=== PATIENT | male | born 1960 | race Caucasian/White ===

== ENCOUNTER → 2019-01-15 | Outpatient (CLI) | payer OTHER | END | disposition home or self-care (01) | LOC: XY 08:14 | PROVIDERS: ATTEND Internal Medicine | DX: I65.23 Occlusion and stenosis of bilateral carotid arteries (principal); I10 Essential (primary) hypertension; I77.89 Other specified disorders of arteries and arterioles | CPT/HCPCS: 93886 ==

== ENCOUNTER → 2019-01-22 | Outpatient (CLI) | payer OTHER ==
[2019-01-22 11:04] LABS: Basophils # (auto) 0 uL; Basophils % (auto) 0.3 % (0.0-2.0); Eosinophils # (auto) 0.2 uL; Eosinophils % (auto) 1.8 % (0.0-7.0); Hematocrit 45.7 % (41.0-53.0); Hemoglobin 15.5 g/dL (13.5-17.5); Lymphocytes # (auto) 1.7 uL; Lymphocytes % (auto) 17.5 % (10.0-50.0); Mean Corpuscular Hemoglobin 31.6 pg (28.0-32.0); Monocytes # (auto) 0.6 uL; Monocytes % (auto) 6.4 % (0.0-12.0); Neutrophils # (auto) 7.1 uL; Platelet Count (auto) 236 10^3/uL (140-450); Red Blood Cells 4.92 10^6/uL (4.5-5.90); Red Cell Distribution Width 13.8 % (11.8-14.3); White Blood Cell 9.6 10^3/uL (4.4-10.8)
[2019-01-22 11:25] LABS: Albumin 3.8 g/dL (3.4-5.0); Calcium 9.1 mg/dL (8.5-10.1); Potassium 4.5 mmol/L (3.5-5.1)
[2019-01-22 11:30] LABS: BUN/Creatinine Ratio 23.4; Bilirubin, Total 0.4 mg/dL (0.2-1.0); Total Protein 7.7 g/dL (6.4-8.2)
== END | disposition home or self-care (01) ==
LOC: LAB 10:35
PROVIDERS: ATTEND Internal Medicine
DX: Z12.5 Encounter for screening for malignant neoplasm of prostate (principal); Z12.11 Encounter for screening for malignant neoplasm of colon; E78.5 Hyperlipidemia, unspecified; I10 Essential (primary) hypertension; R73.09 Other abnormal glucose
CPT/HCPCS: 36415; 80053; 80061; 83036; 84153; 84154; 84443; 85025

== ENCOUNTER → 2019-01-28 | Outpatient (CLI) | payer OTHER | END | disposition home or self-care (01) | LOC: LAB 16:17 | PROVIDERS: ATTEND Internal Medicine | DX: Z12.5 Encounter for screening for malignant neoplasm of prostate (principal); Z12.11 Encounter for screening for malignant neoplasm of colon; I10 Essential (primary) hypertension; E78.5 Hyperlipidemia, unspecified | CPT/HCPCS: 82270 ==

== ENCOUNTER 2020-02-17 17:02 | Inpatient (IN) | payer OTHER ==
[~2020-02-17] VITALS: Ht 180.3 cm; Wt 94.1 kg
[2020-02-17] MEDS ORDERED: cloNIDine HCL 0.1 MG TAB PO ONE (17:45)
[2020-02-17 20:22] LABS: Basophils # (auto) 0.1 10 ^3/uL (0-0.2); Basophils % (auto) 0.9 % (0.0-2.0); Eosinophils # (auto) 0.3 10 ^3/uL (0-0.8); Hematocrit 45.2 % (41.0-53.0); Hemoglobin 15.4 g/dL (13.5-17.5); Lymphocytes # (auto) 2.6 10 ^3/uL (0.4-5.4); Lymphocytes % (auto) 19.2 % (10.0-50.0); Mean Corpuscular Hgb Conc. 34.1 g/dL (32.0-36.0); Mean Corpuscular Volume 91.1 fL (80.0-100.0); Monocytes # (auto) 0.9 10 ^3/uL (0-1.3); Monocytes % (auto) 6.5 % (0.0-12.0); Neutrophils # (auto) 9.6 10 ^3/uL (1.6-8.6); Neutrophils % (auto) 71.4 % (37.0-80.0); Nucleated Red Blood Cells % 0.4 %; Platelet Count (auto) 230 10^3/uL (140-450); Red Blood Cells 4.97 10^6/uL (4.5-5.90); White Blood Cell 13.5 10^3/uL (4.4-10.8)
[2020-02-17 20:36] LABS: INR 0.98 (0.9-1.15); Partial Thromboplastin Time 29.1 sec (23.64-32.05)
[2020-02-17 20:37] LABS: BUN/Creatinine Ratio 15.1; Calcium 8.8 mg/dL (8.5-10.1); Potassium 4.2 mmol/L (3.5-5.1)
[2020-02-17 20:40] LABS: Bilirubin, Total 0.3 mg/dL (0.2-1.0); Total Protein 8.2 g/dL (6.4-8.2)
[2020-02-17] MEDS ORDERED: NIFEdipine 10 MG CAP PO ONE (22:00)
[2020-02-17] MEDS ORDERED: DexAMETHasone INJECTION 10 MG in D5W 5% 50 ML IV ONE (22:15)
[2020-02-17] MEDS ORDERED: ALBUTEROL SULF 2.5 MG/0.5ML(0.5%) NEB SOLN NEB ONE (22:15)
[2020-02-17] MEDS ORDERED: IPRATROPIUM BROM 0.5 MG/2.5ML INH SOL NEB ONE (22:15)
[2020-02-17] MEDS ORDERED: DexAMETHasone SOD PHOS 10MG/1ML VIAL INJ ONE (23:08)
[2020-02-18] VITALS (8 sets, daily range): BP systolic 132–169; BP diastolic 77–95
[2020-02-18] MEDS ORDERED: NITROGLYCERIN 0.4 MG SL TAB SL PRN (01:00)
[2020-02-18] MEDS ORDERED: MORPHINE SULF INJ 2 MG/ML SYRINGE 1ML IV PRN (01:00)
[2020-02-18] MEDS ORDERED: ONDANSETRON HCL 4 MG/2 ML VIAL IV PRN (01:00)
[2020-02-18] MEDS ORDERED: ACETAMINOPHEN 325 MG TAB PO PRN (01:00)
[2020-02-18] MEDS ORDERED: TEMAZEPAM 15 MG CAP PO PRN (01:00)
[2020-02-18] MEDS ORDERED: ASPI-404 PO (05:31)
[2020-02-18] MEDS ORDERED: LOSA-39 PO (05:31)
[2020-02-18] MEDS: IPRATROPIUM BROM 0.5 MG/2.5ML INH SOL NEB SCH ×3 (08:28→18:54)
[2020-02-18] MEDS: ALBUTEROL SULF 2.5 MG/0.5ML(0.5%) NEB SOLN NEB SCH ×3 (08:28→18:54)
[2020-02-18] MEDS: ASPirin 81 mg TAB PO SCH (10:21)
[2020-02-18] MEDS: FAMOTIDINE 20 MG TAB PO SCH ×2 (10:22→20:56)
[2020-02-18] MEDS: LOSARTAN POTASSIUM 50 MG TAB PO SCH (10:22)
[2020-02-18] MEDS: ENOXAPARIN SOD 40 MG/0.4 ML SYRINGE SC SCH (10:22)
[2020-02-18] MEDS: DexAMETHasone INJECTION 10 MG in D5W 5% 50 ML IV SCH (12:15)
[2020-02-18] MEDS ORDERED: METOPROLOL TARTRATE 50 MG TAB PO ONE (12:15)
[2020-02-18] MEDS ORDERED: NICOTINE 21MG/24 HR TOPICAL PATCH TD ONE (13:00)
[2020-02-18 13:58] LABS: Cholesterol 164 mg/dL (< 200)
[2020-02-18 14:01] LABS: HDL Cholesterol 21 mg/dL (40-59); LDL Cholesterol 95 mg/dL (< 100); Triglycerides 375 mg/dL (< 150)
[2020-02-18] MEDS ORDERED: LORazepam 0.5 MG TAB PO ONE (16:45)
[2020-02-18] MEDS: ATORVASTATIN 20 MG TAB PO SCH (20:56)
[2020-02-18] MEDS: METOPROLOL TARTRATE 50 MG TAB PO SCH (20:56)
[2020-02-18] MEDS: DOXYCYCLINE 100 MG TAB/CAP PO SCH (20:57)
[2020-02-18] MEDS: cloNIDine HCL 0.1 MG TAB PO PRN (22:44)
[2020-02-19 05:00] VITALS: BP 131/77
[2020-02-19 06:14] LABS: Basophils # (auto) 0.1 10 ^3/uL (0-0.2); Basophils % (auto) 0.3 % (0.0-2.0); Eosinophils # (auto) 0.1 10 ^3/uL (0-0.8); Eosinophils % (auto) 0.3 % (0.0-7.0); Hematocrit 40.6 % (41.0-53.0); Hemoglobin 13.7 g/dL (13.5-17.5); Lymphocytes # (auto) 1.2 10 ^3/uL (0.4-5.4); Lymphocytes % (auto) 6.3 % (10.0-50.0); Mean Corpuscular Hemoglobin 31.5 pg (28.0-32.0); Mean Corpuscular Hgb Conc. 33.7 g/dL (32.0-36.0); Mean Corpuscular Volume 93.4 fL (80.0-100.0); Monocytes # (auto) 1.1 10 ^3/uL (0-1.3); Monocytes % (auto) 5.8 % (0.0-12.0); Neutrophils # (auto) 16.2 10 ^3/uL (1.6-8.6); Neutrophils % (auto) 87.3 % (37.0-80.0); Nucleated Red Blood Cells % 0.1 %; Platelet Count (auto) 203 10^3/uL (140-450); Red Blood Cells 4.35 10^6/uL (4.5-5.90); Red Cell Distribution Width 14.3 % (11.8-14.3); White Blood Cell 18.6 10^3/uL (4.4-10.8)
[2020-02-19] MEDS: IPRATROPIUM BROM 0.5 MG/2.5ML INH SOL NEB SCH ×5 (06:38→18:45)
[2020-02-19] MEDS: ALBUTEROL SULF 2.5 MG/0.5ML(0.5%) NEB SOLN NEB SCH ×5 (06:38→18:45)
[2020-02-19 06:41] LABS: Calcium 8.7 mg/dL (8.5-10.1); Potassium 4.3 mmol/L (3.5-5.1)
[2020-02-19 06:44] LABS: BUN/Creatinine Ratio 28.6
[2020-02-19] MEDS ORDERED: ADENOSINE 82 MG in GIVE UN-DILUTED 0 ML IV STA (08:07)
[2020-02-19 08:30] VITALS: BP 139/99
[2020-02-19] MEDS: ASPirin 81 mg TAB PO SCH (09:31)
[2020-02-19] MEDS: FAMOTIDINE 20 MG TAB PO SCH ×2 (09:32→20:30)
[2020-02-19] MEDS: DOXYCYCLINE 100 MG TAB/CAP PO SCH ×2 (09:33→20:30)
[2020-02-19] MEDS: ENOXAPARIN SOD 40 MG/0.4 ML SYRINGE SC SCH (09:36)
[2020-02-19] MEDS: LOSARTAN POTASSIUM 50 MG TAB PO SCH (09:47)
[2020-02-19] MEDS: METOPROLOL TARTRATE 50 MG TAB PO SCH ×2 (09:47→20:31)
[2020-02-19] MEDS: NICOTINE 21MG/24 HR TOPICAL PATCH TD SCH (09:48)
[2020-02-19] MEDS: DexAMETHasone INJECTION 10 MG in D5W 5% 50 ML IV SCH (10:40)
[2020-02-19 12:30] VITALS: BP 139/84
[2020-02-19] MEDS ORDERED: VERAPAMIL 2.5MG/ML INJ 2ML VIAL IV ONE (14:22)
[2020-02-19] MEDS ORDERED: ANGIOMAX 250 MG VIAL IV ONE (14:22)
[2020-02-19] MEDS ORDERED: HEPARIN SODIUM (PORCINE) 5000 UNITS/ML 1ML VIAL ONE (14:22)
[2020-02-19] MEDS ORDERED: fentaNYL CITRATE 100 MCG/2 ML VL ONE (14:23)
[2020-02-19] MEDS ORDERED: MIDAZOLAM HCL 1MG/1ML-2 ML VIAL ONE ×2 (14:23→15:15)
[2020-02-19] MEDS ORDERED: SODIUM CHL 0.9% 50 ML ONE (14:23)
[2020-02-19] MEDS ORDERED: LIDOCAINE 2%HCL (LOCAL ANESTH.) INJ 20ML MDV ONE (14:46)
[2020-02-19] MEDS ORDERED: IODIXANOL 320MG/ML 100ML BTL IV ONE (14:46)
[2020-02-19] MEDS ORDERED: IOHEXOL 350 MG/ML 100ML IJ ONE (15:29)
[2020-02-19 17:10] VITALS: BP 150/82
[2020-02-19] MEDS: LORazepam 0.5 MG TAB PO PRN (19:55)
[2020-02-19] MEDS: ATORVASTATIN 20 MG TAB PO SCH (20:30)
[2020-02-19] MEDS: METOPROLOL TARTRATE 1MG/1ML-5ML VIAL IV SCH ×3 (21:15→21:53)
[2020-02-19] MEDS: SODIUM CHLOR 0.9% PF (SALINE LOCK) 10ML VIAL/SYR IV SCH (21:21)
[2020-02-19 22:00] VITALS: BP 127/95
[2020-02-20] MEDS ORDERED: METOPROLOL TARTRATE 1MG/1ML-5ML VIAL IV PRN (02:30)
[2020-02-20 05:00] VITALS: BP 103/62
[2020-02-20] MEDS: SODIUM CHLOR 0.9% PF (SALINE LOCK) 10ML VIAL/SYR IV SCH ×3 (05:54→21:10)
[2020-02-20] MEDS: ASPirin 81 mg TAB PO SCH (07:46)
[2020-02-20] MEDS: DOXYCYCLINE 100 MG TAB/CAP PO SCH ×2 (07:46→21:16)
[2020-02-20] MEDS: LORazepam 0.5 MG TAB PO PRN ×2 (07:46→17:24)
[2020-02-20] MEDS: LOSARTAN POTASSIUM 50 MG TAB PO SCH (07:47)
[2020-02-20] MEDS: FAMOTIDINE 20 MG TAB PO SCH ×2 (07:47→21:15)
[2020-02-20] MEDS: METOPROLOL TARTRATE 50 MG TAB PO SCH ×2 (07:51→21:16)
[2020-02-20] MEDS: ENOXAPARIN SOD 40 MG/0.4 ML SYRINGE SC SCH (07:52)
[2020-02-20] MEDS: NICOTINE 21MG/24 HR TOPICAL PATCH TD SCH ×2 (07:52→10:00)
[2020-02-20 09:00] VITALS: BP 148/104
[2020-02-20] MEDS: ALBUTEROL SULF 2.5 MG/0.5ML(0.5%) NEB SOLN NEB SCH ×5 (09:11→23:59)
[2020-02-20] MEDS: IPRATROPIUM BROM 0.5 MG/2.5ML INH SOL NEB SCH ×5 (09:11→23:59)
[2020-02-20] MEDS: DexAMETHasone INJECTION 10 MG in D5W 5% 50 ML IV SCH (10:42)
[2020-02-20 13:00] VITALS: BP 104/77
[2020-02-20 17:13] VITALS: BP 146/86
[2020-02-20 17:39] VITALS: BP 146/86
[2020-02-20] MEDS: ATORVASTATIN 20 MG TAB PO SCH (21:16)
[2020-02-20 22:00] VITALS: BP 171/97
[2020-02-21] MEDS: LORazepam 0.5 MG TAB PO PRN ×3 (00:05→18:47)
[2020-02-21] MEDS: cloNIDine HCL 0.1 MG TAB PO PRN ×2 (04:50→12:12)
[2020-02-21 05:00] VITALS: BP 144/83
[2020-02-21] MEDS: SODIUM CHLOR 0.9% PF (SALINE LOCK) 10ML VIAL/SYR IV SCH ×3 (06:00→21:27)
[2020-02-21] MEDS: ALBUTEROL SULF 2.5 MG/0.5ML(0.5%) NEB SOLN NEB SCH ×3 (07:34→19:32)
[2020-02-21] MEDS: IPRATROPIUM BROM 0.5 MG/2.5ML INH SOL NEB SCH ×3 (07:34→19:32)
[2020-02-21 09:00] VITALS: BP_SYST 125; BP_SYST 141; BP_DIAS 84; BP_DIAS 91
[2020-02-21] MEDS: NICOTINE 21MG/24 HR TOPICAL PATCH TD SCH (09:39)
[2020-02-21] MEDS: ASPirin 81 mg TAB PO SCH (09:50)
[2020-02-21] MEDS: FAMOTIDINE 20 MG TAB PO SCH ×2 (09:51→22:03)
[2020-02-21] MEDS: ENOXAPARIN SOD 40 MG/0.4 ML SYRINGE SC SCH (09:51)
[2020-02-21] MEDS: DOXYCYCLINE 100 MG TAB/CAP PO SCH ×2 (09:51→22:04)
[2020-02-21] MEDS: LOSARTAN POTASSIUM 50 MG TAB PO SCH (09:51)
[2020-02-21] MEDS: METOPROLOL TARTRATE 50 MG TAB PO SCH ×2 (09:51→22:03)
[2020-02-21] MEDS: DexAMETHasone INJECTION 10 MG in D5W 5% 50 ML IV SCH (10:27)
[2020-02-21 13:00] VITALS: BP 170/106
[2020-02-21 17:00] VITALS: BP 145/89
[2020-02-21 22:00] VITALS: BP 156/91
[2020-02-21] MEDS: ATORVASTATIN 20 MG TAB PO SCH (22:03)
[2020-02-22] MEDS: IPRATROPIUM BROM 0.5 MG/2.5ML INH SOL NEB SCH ×4 (00:45→18:00)
[2020-02-22] MEDS: ALBUTEROL SULF 2.5 MG/0.5ML(0.5%) NEB SOLN NEB SCH ×4 (00:45→18:00)
[2020-02-22] MEDS: LORazepam 0.5 MG TAB PO PRN ×4 (00:48→23:00)
[2020-02-22] MEDS: traMADol HCL 50 MG TAB PO PRN ×2 (02:54→16:03)
[2020-02-22 05:12] VITALS: BP 138/87
[2020-02-22] MEDS: SODIUM CHLOR 0.9% PF (SALINE LOCK) 10ML VIAL/SYR IV SCH ×3 (06:33→22:18)
[2020-02-22 09:00] VITALS: BP 142/87
[2020-02-22] MEDS: ENOXAPARIN SOD 40 MG/0.4 ML SYRINGE SC SCH (09:36)
[2020-02-22] MEDS: DOXYCYCLINE 100 MG TAB/CAP PO SCH ×2 (09:36→22:19)
[2020-02-22] MEDS: FAMOTIDINE 20 MG TAB PO SCH ×2 (09:36→22:19)
[2020-02-22] MEDS: METOPROLOL TARTRATE 50 MG TAB PO SCH ×2 (09:37→22:19)
[2020-02-22] MEDS: ASPirin 81 mg TAB PO SCH (09:39)
[2020-02-22] MEDS: LOSARTAN POTASSIUM 50 MG TAB PO SCH (09:39)
[2020-02-22] MEDS: NICOTINE 21MG/24 HR TOPICAL PATCH TD SCH (09:40)
[2020-02-22] MEDS: DexAMETHasone INJECTION 10 MG in D5W 5% 50 ML IV SCH (09:56)
[2020-02-22 13:00] VITALS: BP 142/86
[2020-02-22 17:00] VITALS: BP 143/82
[2020-02-22] MEDS: ATORVASTATIN 20 MG TAB PO SCH (22:18)
[2020-02-23 00:09] VITALS: BP 149/90
[2020-02-23] MEDS: IPRATROPIUM BROM 0.5 MG/2.5ML INH SOL NEB SCH ×4 (01:26→18:44)
[2020-02-23] MEDS: ALBUTEROL SULF 2.5 MG/0.5ML(0.5%) NEB SOLN NEB SCH ×4 (01:26→18:44)
[2020-02-23 05:42] VITALS: BP 132/96
[2020-02-23] MEDS: SODIUM CHLOR 0.9% PF (SALINE LOCK) 10ML VIAL/SYR IV SCH ×3 (06:00→22:00)
[2020-02-23 06:31] LABS: Basophils # (auto) 0 10 ^3/uL (0-0.2); Basophils % (auto) 0.2 % (0.0-2.0); Eosinophils # (auto) 0.1 10 ^3/uL (0-0.8); Eosinophils % (auto) 0.3 % (0.0-7.0); Hematocrit 42.8 % (41.0-53.0); Hemoglobin 14.4 g/dL (13.5-17.5); Lymphocytes # (auto) 2.7 10 ^3/uL (0.4-5.4); Lymphocytes % (auto) 17.3 % (10.0-50.0); Mean Corpuscular Hemoglobin 30.8 pg (28.0-32.0); Mean Corpuscular Hgb Conc. 33.6 g/dL (32.0-36.0); Mean Corpuscular Volume 91.5 fL (80.0-100.0); Monocytes # (auto) 1.2 10 ^3/uL (0-1.3); Monocytes % (auto) 7.4 % (0.0-12.0); Neutrophils # (auto) 11.7 10 ^3/uL (1.6-8.6); Neutrophils % (auto) 74.8 % (37.0-80.0); Nucleated Red Blood Cells % 0.2 %; Platelet Count (auto) 204 10^3/uL (140-450); Red Blood Cells 4.67 10^6/uL (4.5-5.90); Red Cell Distribution Width 13.9 % (11.8-14.3); White Blood Cell 15.7 10^3/uL (4.4-10.8)
[2020-02-23 06:40] LABS: INR 1.07 (0.9-1.15); Partial Thromboplastin Time 28.4 sec (23.64-32.05)
[2020-02-23 06:43] LABS: Potassium 4.1 mmol/L (3.5-5.1)
[2020-02-23 06:54] LABS: BUN/Creatinine Ratio 39.8; Calcium 8.4 mg/dL (8.5-10.1)
[2020-02-23] MEDS ORDERED: IOHEXOL 350 MG/ML 100ML IJ ONE (07:38)
[2020-02-23] MEDS ORDERED: LIDOCAINE 2%HCL (LOCAL ANESTH.) INJ 20ML MDV ONE (07:38)
[2020-02-23 09:00] VITALS: BP 159/101
[2020-02-23] MEDS: ASPirin 81 mg TAB PO SCH (09:55)
[2020-02-23] MEDS: FAMOTIDINE 20 MG TAB PO SCH ×2 (09:58→22:00)
[2020-02-23] MEDS: LOSARTAN POTASSIUM 50 MG TAB PO SCH (09:58)
[2020-02-23] MEDS: DOXYCYCLINE 100 MG TAB/CAP PO SCH ×2 (09:58→22:00)
[2020-02-23] MEDS: METOPROLOL TARTRATE 50 MG TAB PO SCH ×2 (09:58→22:00)
[2020-02-23] MEDS: NICOTINE 21MG/24 HR TOPICAL PATCH TD SCH (10:00)
[2020-02-23] MEDS: ENOXAPARIN SOD 40 MG/0.4 ML SYRINGE SC SCH (10:00)
[2020-02-23] MEDS: DexAMETHasone INJECTION 10 MG in D5W 5% 50 ML IV SCH (10:00)
[2020-02-23 12:44] VITALS: BP 142/82
[2020-02-23 17:01] VITALS: BP 140/74
[2020-02-23 22:00] VITALS: BP 148/79
[2020-02-23] MEDS: ATORVASTATIN 20 MG TAB PO SCH (22:00)
[2020-02-23] MEDS: traMADol HCL 50 MG TAB PO PRN (22:40)
[2020-02-24 03:55] VITALS: BP 135/90
[2020-02-24] MEDS: SODIUM CHLOR 0.9% PF (SALINE LOCK) 10ML VIAL/SYR IV SCH ×3 (04:56→22:46)
[2020-02-24 05:00] VITALS: BP 140/83
[2020-02-24] MEDS: ASPirin 81 mg TAB PO SCH (08:14)
[2020-02-24] MEDS: FAMOTIDINE 20 MG TAB PO SCH ×2 (08:15→22:45)
[2020-02-24] MEDS: METOPROLOL TARTRATE 50 MG TAB PO SCH ×2 (08:15→22:44)
[2020-02-24] MEDS: LOSARTAN POTASSIUM 50 MG TAB PO SCH (08:15)
[2020-02-24] MEDS: DOXYCYCLINE 100 MG TAB/CAP PO SCH ×2 (08:16→22:43)
[2020-02-24] MEDS: ENOXAPARIN SOD 40 MG/0.4 ML SYRINGE SC SCH (08:16)
[2020-02-24] MEDS: NICOTINE 21MG/24 HR TOPICAL PATCH TD SCH (08:16)
[2020-02-24] MEDS: IPRATROPIUM BROM 0.5 MG/2.5ML INH SOL NEB SCH ×4 (08:24→19:18)
[2020-02-24] MEDS: ALBUTEROL SULF 2.5 MG/0.5ML(0.5%) NEB SOLN NEB SCH ×4 (08:24→19:19)
[2020-02-24 08:48] VITALS: BP 151/83
[2020-02-24] MEDS ORDERED: IODIXANOL 320MG/ML 100ML BTL IV ONE (09:01)
[2020-02-24] MEDS ORDERED: LIDOCAINE 2%HCL (LOCAL ANESTH.) INJ 20ML MDV ONE (09:01)
[2020-02-24] MEDS ORDERED: HEPARIN SODIUM (PORCINE) 5000 UNITS/ML 1ML VIAL ONE (10:14)
[2020-02-24] MEDS ORDERED: VERAPAMIL 2.5MG/ML INJ 2ML VIAL IV ONE (10:14)
[2020-02-24] MEDS ORDERED: fentaNYL CITRATE 100 MCG/2 ML VL ONE (10:14)
[2020-02-24] MEDS ORDERED: ANGIOMAX 250 MG VIAL IV ONE ×2 (10:14→11:15)
[2020-02-24] MEDS ORDERED: MIDAZOLAM HCL 1MG/1ML-2 ML VIAL ONE ×2 (10:15→11:15)
[2020-02-24] MEDS ORDERED: SODIUM CHL 0.9% 50 ML ONE ×2 (10:15→11:15)
[2020-02-24] MEDS ORDERED: diphenhdrAMINE HCL 50 MG/1 ML VL ONE (10:55)
[2020-02-24] MEDS ORDERED: IOHEXOL 350 MG/ML 100ML IJ ONE (11:27)
[2020-02-24] MEDS ORDERED: TICAGRELOR 90 MG TAB ONE (11:41)
[2020-02-24] MEDS ORDERED: TICAGRELOR 90 MG TAB PO ONE (12:15)
[2020-02-24] MEDS: DexAMETHasone INJECTION 10 MG in D5W 5% 50 ML IV SCH (13:03)
[2020-02-24 13:06] VITALS: BP 118/80
[2020-02-24] MEDS: LORazepam 0.5 MG TAB PO PRN (15:20)
[2020-02-24 16:40] VITALS: BP 151/76
[2020-02-24 22:00] VITALS: BP 131/73
[2020-02-24] MEDS: traMADol HCL 50 MG TAB PO PRN (22:43)
[2020-02-24] MEDS: TICAGRELOR 90 MG TAB PO SCH (22:44)
[2020-02-24] MEDS: ATORVASTATIN 20 MG TAB PO SCH (22:45)
[2020-02-25 05:00] VITALS: BP 146/84
[2020-02-25] MEDS: SODIUM CHLOR 0.9% PF (SALINE LOCK) 10ML VIAL/SYR IV SCH (06:00)
[2020-02-25] MEDS: ALBUTEROL SULF 2.5 MG/0.5ML(0.5%) NEB SOLN NEB SCH ×3 (07:04→12:13)
[2020-02-25] MEDS: IPRATROPIUM BROM 0.5 MG/2.5ML INH SOL NEB SCH ×3 (07:04→12:13)
[2020-02-25 08:00] VITALS: BP 135/74
[2020-02-25 09:00] VITALS: BP 135/74
[2020-02-25] MEDS: DOXYCYCLINE 100 MG TAB/CAP PO SCH (09:40)
[2020-02-25] MEDS: ASPirin 81 mg TAB PO SCH (09:40)
[2020-02-25] MEDS: METOPROLOL TARTRATE 50 MG TAB PO SCH (09:41)
[2020-02-25] MEDS: FAMOTIDINE 20 MG TAB PO SCH (09:41)
[2020-02-25] MEDS: LOSARTAN POTASSIUM 50 MG TAB PO SCH (09:41)
[2020-02-25] MEDS: TICAGRELOR 90 MG TAB PO SCH (09:42)
[2020-02-25] MEDS: traMADol HCL 50 MG TAB PO PRN (09:45)
[2020-02-25] MEDS: LORazepam 0.5 MG TAB PO PRN (09:46)
[2020-02-25] MEDS: NICOTINE 21MG/24 HR TOPICAL PATCH TD SCH (10:00)
[2020-02-25] MEDS: DexAMETHasone INJECTION 10 MG in D5W 5% 50 ML IV SCH (10:00)
[2020-02-25 12:28] VITALS: BP 135/74
[2020-02-25 13:00] VITALS: BP 111/72
== END 2020-02-25 13:40 | disposition home or self-care (01) | DRG 246 ==
LOC: ER 17:02 → TELE 17:03 → TELE-WESTW 02-18 02:20
PROVIDERS: ADMIT Nurse Practitioner; ATTEND Family Medicine
PROC: 4A023N7 Measurement of Cardiac Sampling and Pressure, Left Heart, Percutaneous Approach (ICD-10-PCS; 2020-02-19)
PROC: B2111ZZ Fluoroscopy of Multiple Coronary Arteries using Low Osmolar Contrast (ICD-10-PCS; 2020-02-19)
PROC: B2151ZZ Fluoroscopy of Left Heart using Low Osmolar Contrast (ICD-10-PCS; 2020-02-19)
PROC: 027137Z Dilation of Coronary Artery, Two Arteries with Four or More Drug-eluting Intraluminal Devices, Percutaneous Approach (ICD-10-PCS; principal; 2020-02-24)
DX: I25.10 Atherosclerotic heart disease of native coronary artery without angina pectoris (principal); I16.1 Hypertensive emergency; J44.1 Chronic obstructive pulmonary disease with (acute) exacerbation; F12.90 Cannabis use, unspecified, uncomplicated; E78.00 Pure hypercholesterolemia, unspecified; I11.0 Hypertensive heart disease with heart failure; I50.9 Heart failure, unspecified; E66.9 Obesity, unspecified; E78.5 Hyperlipidemia, unspecified; Z68.30 Body mass index [BMI] 30.0-30.9, adult; Z91.19 Patient's noncompliance with other medical treatment and regimen; Z72.0 Tobacco use; Z80.1 Family history of malignant neoplasm of trachea, bronchus and lung; Z82.49 Family history of ischemic heart disease and other diseases of the circulatory system; Z83.3 Family history of diabetes mellitus; Z91.14 Patient's other noncompliance with medication regimen; Z68.28 Body mass index [BMI] 28.0-28.9, adult; Z71.6 Tobacco abuse counseling
CPT/HCPCS: 36415; 71046; 78452; 80048; 80053; 80061; 82565; 83735; 83880; 84443; 84484; 85025; 85610; 85730; 93005; 93017; 93306; 93886; 93975; 94640; 99152; 99153; 99291; C1874; C1887; G0378; J0153; J1100; J2250; J7060; Q9967

== ENCOUNTER 2020-03-04 08:36 | Inpatient (IN) | payer OTHER ==
[~2020-03-04] VITALS: Ht 180.3 cm; Wt 76.0 kg
[~2020-03-04 08:36] MED LIST: ASPI-404 PO; LOSA-39 PO
[2020-03-04] MEDS ORDERED: SODIUM CHLORIDE 0.9% 1,000 ML IV ONE (08:42)
[2020-03-04] MEDS ORDERED: DexAMETHasone SOD PHOS 10MG/1ML VIAL INJ IV ONE (08:45)
[2020-03-04] MEDS ORDERED: cloNIDine HCL 0.1 MG TAB PO ONE (09:00)
[2020-03-04 09:37] LABS: Basophils # (auto) 0.1 10 ^3/uL (0-0.2); Basophils % (auto) 0.6 % (0.0-2.0); Eosinophils # (auto) 0.1 10 ^3/uL (0-0.8); Eosinophils % (auto) 0.4 % (0.0-7.0); Hematocrit 37.2 % (41.0-53.0); Hemoglobin 12.7 g/dL (13.5-17.5); Mean Corpuscular Hemoglobin 31.1 pg (28.0-32.0); Mean Corpuscular Hgb Conc. 34.1 g/dL (32.0-36.0); Mean Corpuscular Volume 91.1 fL (80.0-100.0); Monocytes # (auto) 1.2 10 ^3/uL (0-1.3); Monocytes % (auto) 7.4 % (0.0-12.0); Neutrophils # (auto) 13.5 10 ^3/uL (1.6-8.6); Neutrophils % (auto) 85.6 % (37.0-80.0); Platelet Count (auto) 211 10^3/uL (140-450); Red Blood Cells 4.08 10^6/uL (4.5-5.90); Red Cell Distribution Width 13.7 % (11.8-14.3); White Blood Cell 15.7 10^3/uL (4.4-10.8)
[2020-03-04 10:01] LABS: Calcium 8.7 mg/dL (8.5-10.1); Chloride 97 mmol/L (98-107); Potassium 4.1 mmol/L (3.5-5.1); Sodium 129 mmol/L (136-145)
[2020-03-04 10:12] LABS: Alanine Aminotransferase 27 U/L (16-61); Albumin 2.5 g/dL (3.4-5.0); Alkaline Phosphatase 124 U/L (45-117); Anion Gap 8 (5-15); Aspartate Aminotransferase 20 U/L (15-37); BUN/Creatinine Ratio 18.4; Bilirubin, Total 0.8 mg/dL (0.2-1.0); Blood Urea Nitrogen 14 mg/dL (7-18); Carbon Dioxide 24 mmol/L (21-32); GFR African American 135 mL/min; GFR Non-African American 112 mL/min; Glucose 173 mg/dL (74-106); Total Protein 7.7 g/dL (6.4-8.2)
[2020-03-04 10:27] LABS: INR 1.13 (0.9-1.15); Partial Thromboplastin Time 30.6 sec (23.64-32.05)
[2020-03-04] MEDS ORDERED: AZITHROMYCIN 500MG/ 250ML 250 ML IV ONE (10:45)
[2020-03-04] MEDS ORDERED: cefTRIAXone 1GM/50ML D5W 50 ML IV ONE (10:45)
[2020-03-04 13:26] LABS: Urine Bacteria NONE SEEN /hpf (None Seen); Urine Blood Negative /uL (Negative); Urine Mucus FEW (None Seen); Urine Specific Gravity 1.014 (1.001-1.035); Urine WBC 1 /hpf (0 - 3)
[2020-03-04 14:57] LABS: CRP High Sensitivity 15.5 mg/dL (< 0.3)
[2020-03-04] MEDS ORDERED: NITROGLYCERIN 0.4 MG SL TAB SL PRN (15:00)
[2020-03-04] MEDS ORDERED: MORPHINE SULF INJ 2 MG/ML SYRINGE 1ML IV PRN (15:00)
[2020-03-04] MEDS ORDERED: DEXTROSE (50%) 50ML SYRG IV PRN (15:00)
[2020-03-04] MEDS ORDERED: LISINOPRIL 10 MG TAB PO ONE (15:00)
[2020-03-04] MEDS ORDERED: POTASSIUM CHL 20 Meq TABLET PO ONE (15:00)
[2020-03-04] MEDS ORDERED: FUROSEMIDE 40 MG TAB PO ONE (15:00)
[2020-03-04] MEDS ORDERED: SPIRONOLACTONE 25 MG TAB PO ONE (15:00)
[2020-03-04 15:16] VITALS: BP 134/84
[2020-03-04] MEDS ORDERED: LORA1TAB23 PO (16:16)
[2020-03-04] MEDS ORDERED: TICA90TA PO (16:18)
[2020-03-04] MEDS ORDERED: TRAM50TA2 PO (16:18)
[2020-03-04] MEDS ORDERED: ATOR40TA52 PO (16:18)
[2020-03-04] MEDS ORDERED: METO-5 PO (16:20)
[2020-03-04] MEDS: InsuLIN REG 1unit/0.01ml Soln (100units/ml) SC SCH ×2 (16:55→20:50)
[2020-03-04] MEDS: ACCU-CHEK COMFORT CURVE STRIP VI SCH ×2 (17:01→20:50)
[2020-03-04] MEDS: IPRATROPIUM BROM 0.5 MG/2.5ML INH SOL NEB SCH (18:30)
[2020-03-04] MEDS: ALBUTEROL SULF 2.5 MG/0.5ML(0.5%) NEB SOLN NEB SCH (18:30)
[2020-03-04] MEDS: CARVEDILOL 3.125 MG TAB PO SCH (20:49)
[2020-03-04] MEDS: TICAGRELOR 90 MG TAB PO SCH (20:49)
[2020-03-04] MEDS: ATORVASTATIN 20 MG TAB PO SCH (20:49)
[2020-03-04 22:00] VITALS: BP 107/62
[2020-03-04] MEDS ORDERED: TEMAZEPAM 15 MG CAP PO PRN (22:30)
[2020-03-04] MEDS: traMADol HCL 50 MG TAB PO PRN (23:50)
[2020-03-05 05:00] VITALS: BP 96/51
[2020-03-05] MEDS: traMADol HCL 50 MG TAB PO PRN ×2 (05:26→21:30)
[2020-03-05] MEDS: ACCU-CHEK COMFORT CURVE STRIP VI SCH ×4 (05:41→21:36)
[2020-03-05] MEDS: InsuLIN REG 1unit/0.01ml Soln (100units/ml) SC SCH ×4 (05:45→21:36)
[2020-03-05 06:44] LABS: Basophils # (auto) 0 10 ^3/uL (0-0.2); Basophils % (auto) 0.2 % (0.0-2.0); Eosinophils # (auto) 0 10 ^3/uL (0-0.8); Eosinophils % (auto) 0.1 % (0.0-7.0); Hematocrit 37.3 % (41.0-53.0); Hemoglobin 12.6 g/dL (13.5-17.5); Lymphocytes # (auto) 0.8 10 ^3/uL (0.4-5.4); Lymphocytes % (auto) 3.8 % (10.0-50.0); Mean Corpuscular Hemoglobin 30.8 pg (28.0-32.0); Mean Corpuscular Hgb Conc. 33.9 g/dL (32.0-36.0); Monocytes % (auto) 4.7 % (0.0-12.0); Neutrophils # (auto) 19.5 10 ^3/uL (1.6-8.6); Neutrophils % (auto) 91.2 % (37.0-80.0); Nucleated Red Blood Cells % 0.1 %; Platelet Count (auto) 263 10^3/uL (140-450); Red Cell Distribution Width 13.5 % (11.8-14.3); White Blood Cell 21.4 10^3/uL (4.4-10.8)
[2020-03-05 06:59] LABS: BUN/Creatinine Ratio 17.6; Calcium 9.2 mg/dL (8.5-10.1); Potassium 3.9 mmol/L (3.5-5.1)
[2020-03-05] MEDS: ALBUTEROL SULF 2.5 MG/0.5ML(0.5%) NEB SOLN NEB SCH ×3 (07:16→20:00)
[2020-03-05] MEDS: IPRATROPIUM BROM 0.5 MG/2.5ML INH SOL NEB SCH ×3 (07:16→20:00)
[2020-03-05 09:00] VITALS: BP 121/70
[2020-03-05] MEDS: SPIRONOLACTONE 25 MG TAB PO SCH (09:50)
[2020-03-05] MEDS: TICAGRELOR 90 MG TAB PO SCH ×2 (09:50→21:30)
[2020-03-05] MEDS: ASPirin 81 mg TAB PO SCH (09:51)
[2020-03-05] MEDS: LISINOPRIL 10 MG TAB PO SCH (09:52)
[2020-03-05] MEDS: POTASSIUM CHL 20 Meq TABLET PO SCH (09:52)
[2020-03-05] MEDS: FUROSEMIDE 40 MG TAB PO SCH (09:52)
[2020-03-05] MEDS: CARVEDILOL 3.125 MG TAB PO SCH ×3 (09:52→21:30)
[2020-03-05] MEDS ORDERED: VANCOMYCIN PER PHARMACY 0 MG IV SCH (10:30)
[2020-03-05] MEDS ORDERED: PIPERACILLIN-TAZOB 3.375GM 100 ML IV ONE (12:00)
[2020-03-05 13:00] VITALS: BP 132/70
[2020-03-05] MEDS ORDERED: VANCOMYCIN 1GM/250ML 250 ML IV ONE (13:00)
[2020-03-05 17:00] VITALS: BP 115/68
[2020-03-05] MEDS: PIPERACILLIN-TAZOB 3.375GM 100 ML IV SCH (17:19)
[2020-03-05] MEDS: ATORVASTATIN 20 MG TAB PO SCH (21:29)
[2020-03-05 22:00] VITALS: BP 133/75
[2020-03-05] MEDS: LORazepam 0.5 MG TAB PO PRN (22:40)
[2020-03-05] MEDS: VANCOMYCIN 1GM/250ML 250 ML IV SCH (23:40)
[2020-03-06] MEDS: PIPERACILLIN-TAZOB 3.375GM 100 ML IV SCH ×5 (00:39→23:21)
[2020-03-06 05:00] VITALS: BP 122/67
[2020-03-06] MEDS: InsuLIN REG 1unit/0.01ml Soln (100units/ml) SC SCH ×4 (05:50→21:36)
[2020-03-06] MEDS: ACCU-CHEK COMFORT CURVE STRIP VI SCH ×4 (05:51→21:36)
[2020-03-06] MEDS: IPRATROPIUM BROM 0.5 MG/2.5ML INH SOL NEB SCH ×4 (07:48→21:17)
[2020-03-06] MEDS: ALBUTEROL SULF 2.5 MG/0.5ML(0.5%) NEB SOLN NEB SCH ×3 (07:48→19:18)
[2020-03-06 09:00] VITALS: BP 138/90
[2020-03-06] MEDS: ASPirin 81 mg TAB PO SCH (09:51)
[2020-03-06] MEDS: TICAGRELOR 90 MG TAB PO SCH ×2 (09:51→21:27)
[2020-03-06] MEDS: POTASSIUM CHL 20 Meq TABLET PO SCH (09:51)
[2020-03-06] MEDS: LISINOPRIL 10 MG TAB PO SCH (09:51)
[2020-03-06] MEDS: SPIRONOLACTONE 25 MG TAB PO SCH (09:52)
[2020-03-06] MEDS: CARVEDILOL 3.125 MG TAB PO SCH ×2 (09:52→21:27)
[2020-03-06] MEDS: VANCOMYCIN 1GM/250ML 250 ML IV SCH ×2 (09:53→20:07)
[2020-03-06] MEDS: FUROSEMIDE 40 MG TAB PO SCH (09:53)
[2020-03-06] MEDS: LORazepam 0.5 MG TAB PO PRN ×2 (09:59→21:27)
[2020-03-06] MEDS ORDERED: ALBUTEROL SULF 2.5 MG/0.5ML(0.5%) NEB SOLN NEB PRN (10:45)
[2020-03-06] MEDS ORDERED: guaiFENesin-CODEINE Liq 5 ML UD PO PRN (11:00)
[2020-03-06 13:00] VITALS: BP 119/69
[2020-03-06 17:00] VITALS: BP 114/76
[2020-03-06] MEDS: traMADol HCL 50 MG TAB PO PRN (17:15)
[2020-03-06 21:17] VITALS: BP 123/82
[2020-03-06] MEDS: ATORVASTATIN 20 MG TAB PO SCH (21:27)
[2020-03-07 05:00] VITALS: BP 113/55
[2020-03-07] MEDS: VANCOMYCIN 1GM/250ML 250 ML IV SCH (06:00)
[2020-03-07] MEDS: InsuLIN REG 1unit/0.01ml Soln (100units/ml) SC SCH ×2 (06:31→11:18)
[2020-03-07] MEDS: PIPERACILLIN-TAZOB 3.375GM 100 ML IV SCH (06:32)
[2020-03-07] MEDS: ACCU-CHEK COMFORT CURVE STRIP VI SCH ×2 (06:32→11:11)
[2020-03-07] MEDS: ALBUTEROL SULF 2.5 MG/0.5ML(0.5%) NEB SOLN NEB SCH ×2 (07:28→11:42)
[2020-03-07] MEDS: IPRATROPIUM BROM 0.5 MG/2.5ML INH SOL NEB SCH ×2 (07:28→11:42)
[2020-03-07 08:00] VITALS: BP 100/63
[2020-03-07 08:06] LABS: Basophils # (auto) 0 10 ^3/uL (0-0.2); Basophils % (auto) 0.4 % (0.0-2.0); Eosinophils # (auto) 0.1 10 ^3/uL (0-0.8); Eosinophils % (auto) 1.1 % (0.0-7.0); Hematocrit 34.7 % (41.0-53.0); Hemoglobin 11.9 g/dL (13.5-17.5); Lymphocytes # (auto) 1.4 10 ^3/uL (0.4-5.4); Lymphocytes % (auto) 12.3 % (10.0-50.0); Mean Corpuscular Hemoglobin 31.1 pg (28.0-32.0); Mean Corpuscular Hgb Conc. 34.3 g/dL (32.0-36.0); Mean Corpuscular Volume 90.6 fL (80.0-100.0); Monocytes # (auto) 0.8 10 ^3/uL (0-1.3); Monocytes % (auto) 6.9 % (0.0-12.0); Neutrophils # (auto) 8.7 10 ^3/uL (1.6-8.6); Neutrophils % (auto) 79.3 % (37.0-80.0); Nucleated Red Blood Cells % 0.1 %; Platelet Count (auto) 268 10^3/uL (140-450); Red Blood Cells 3.83 10^6/uL (4.5-5.90); Red Cell Distribution Width 13.6 % (11.8-14.3)
[2020-03-07 08:17] LABS: Albumin 2.3 g/dL (3.4-5.0); Calcium 8.6 mg/dL (8.5-10.1); Potassium 3.9 mmol/L (3.5-5.1)
[2020-03-07 08:22] LABS: BUN/Creatinine Ratio 16.3; Bilirubin, Total 0.5 mg/dL (0.2-1.0)
[2020-03-07 09:00] VITALS: BP 100/63
[2020-03-07] MEDS: FUROSEMIDE 40 MG TAB PO SCH (10:00)
[2020-03-07] MEDS: CARVEDILOL 3.125 MG TAB PO SCH (10:00)
[2020-03-07] MEDS: LISINOPRIL 10 MG TAB PO SCH (10:00)
[2020-03-07] MEDS ORDERED: levoFLOXacin 500MG 100 ML IV ONE (10:15)
[2020-03-07] MEDS: TICAGRELOR 90 MG TAB PO SCH (10:44)
[2020-03-07] MEDS: SPIRONOLACTONE 25 MG TAB PO SCH (10:44)
[2020-03-07] MEDS: ASPirin 81 mg TAB PO SCH (10:44)
[2020-03-07] MEDS: POTASSIUM CHL 20 Meq TABLET PO SCH (10:44)
[2020-03-07] MEDS: traMADol HCL 50 MG TAB PO PRN (12:26)
[2020-03-07 13:00] VITALS: BP 138/72
[2020-03-07 13:30] VITALS: BP 100/63
[2020-03-08] MEDS ORDERED: levoFLOXacin 500MG 100 ML IV SCH (10:00)
== END 2020-03-07 15:00 | disposition home or self-care (01) | DRG 871 ==
LOC: ER 08:36 → TELE 08:37 → TELE-WESTW 18:25
PROVIDERS: ADMIT Internal Medicine; ATTEND Family Medicine
DX: A41.9 Sepsis, unspecified organism (principal); J96.00 Acute respiratory failure, unspecified whether with hypoxia or hypercapnia; I50.23 Acute on chronic systolic (congestive) heart failure; E87.1 Hypo-osmolality and hyponatremia; E44.0 Moderate protein-calorie malnutrition; J44.1 Chronic obstructive pulmonary disease with (acute) exacerbation; E11.9 Type 2 diabetes mellitus without complications; I25.10 Atherosclerotic heart disease of native coronary artery without angina pectoris; I11.0 Hypertensive heart disease with heart failure; E78.5 Hyperlipidemia, unspecified; F17.210 Nicotine dependence, cigarettes, uncomplicated; Z82.49 Family history of ischemic heart disease and other diseases of the circulatory system; Z95.5 Presence of coronary angioplasty implant and graft; Z03.818 Encounter for observation for suspected exposure to other biological agents ruled out; Z68.23 Body mass index [BMI] 23.0-23.9, adult
CPT/HCPCS: 36415; 71045; 71250; 80048; 80053; 80202; 81001; 82728; 82962; 83036; 83605; 83615; 83880; 84484; 85025; 85610; 85730; 86141; 87040; 87081; 87086; 94640; 96365; 96366; 96368; 96375; 99291; G0378; J0696; J1100; J1815; J1956; J2543

== ENCOUNTER → 2020-06-10 | Outpatient (CLI) | payer OTHER ==
[~2020-06-10] MED LIST changes: -ASPI-404 PO; +ASPI-543 PO; +ATOR40TA52 PO; +LORA1TAB23 PO; +METO-5 PO; +TICA90TA PO; +TRAM50TA2 PO
[2020-06-10 09:49] LABS: Basophils # (auto) 0.1 10 ^3/uL (0-0.2); Basophils % (auto) 0.5 % (0.0-2.0); Eosinophils # (auto) 0.6 10 ^3/uL (0-0.8); Eosinophils % (auto) 5.1 % (0.0-7.0); Hematocrit 39.6 % (41.0-53.0); Lymphocytes # (auto) 1.8 10 ^3/uL (0.4-5.4); Lymphocytes % (auto) 14.5 % (10.0-50.0); Mean Corpuscular Hemoglobin 31.7 pg (28.0-32.0); Mean Corpuscular Hgb Conc. 35.3 g/dL (32.0-36.0); Mean Corpuscular Volume 89.8 fL (80.0-100.0); Monocytes # (auto) 0.9 10 ^3/uL (0-1.3); Monocytes % (auto) 7.6 % (0.0-12.0); Neutrophils # (auto) 8.9 10 ^3/uL (1.6-8.6); Neutrophils % (auto) 72.3 % (37.0-80.0); Nucleated Red Blood Cells % 0.1 %; Platelet Count (auto) 273 10^3/uL (140-450); Red Blood Cells 4.41 10^6/uL (4.5-5.90); Red Cell Distribution Width 14.1 % (11.8-14.3); White Blood Cell 12.3 10^3/uL (4.4-10.8)
[2020-06-10 09:53] LABS: Urine Bacteria NONE SEEN /hpf (None Seen); Urine Blood Negative /uL (Negative); Urine Hyaline Cast MOD /lpf (0 - 2); Urine Mucus FEW (None Seen); Urine Specific Gravity 1.024 (1.001-1.035); Urine WBC 5 /hpf (0 - 3)
[2020-06-10 10:42] LABS: Albumin 3.7 g/dL (3.4-5.0); Calcium 9.2 mg/dL (8.5-10.1); Potassium 3.1 mmol/L (3.5-5.1)
[2020-06-10 10:45] LABS: Bilirubin, Total 0.6 mg/dL (0.2-1.0); Total Protein 7.3 g/dL (6.4-8.2)
[2020-06-10 10:53] LABS: Protein, Urine 27.9 mg/dL (0.0-11.9)
[2020-06-10 11:05] LABS: Micro Albumin 34.5 mg/L (0-30.0)
== END | disposition home or self-care (01) ==
LOC: LAB 09:30
PROVIDERS: ATTEND Internal Medicine Nephrology
DX: E11.9 Type 2 diabetes mellitus without complications (principal); I50.9 Heart failure, unspecified
CPT/HCPCS: 36415; 80053; 81001; 82043; 82570; 83036; 84156; 85025

== ENCOUNTER → 2020-07-26 | Outpatient (CLI) | payer OTHER ==
[2020-07-26 11:53] LABS: Calcium 9.1 mg/dL (8.5-10.1); Potassium 4.2 mmol/L (3.5-5.1)
[2020-07-26 11:56] LABS: BUN/Creatinine Ratio 15.7
== END | disposition home or self-care (01) ==
LOC: LAB 11:04
PROVIDERS: ATTEND Internal Medicine Nephrology
DX: I10 Essential (primary) hypertension (principal)
CPT/HCPCS: 36415; 80048